=== PATIENT | male | born 1975 | race Caucasian/White ===

== ENCOUNTER 2016-12-13 10:07 | Observation (INO) ==
[2016-12-13] MEDS ORDERED: 0.9 % Sodium Chloride 500 ML IVC ONE (10:12)
[2016-12-13] MEDS ORDERED: Aspirin 81 MG TAB.CHEW PO ONE (10:12)
[2016-12-13] MEDS ORDERED: Ondansetron 4 MG/2 ML VIAL IVP ONE (10:12)
[2016-12-13] MEDS ORDERED: Ketorolac 30 MG/ML VIAL IVP ONE (10:12)
--- NOTE | 2016-12-13 10:14 | Emergency Department Note ---
Disposition Clinical Impression: Atypical chest pain Chest pain Qualifiers: Chest pain type: precordial pain Qualified Code(s): R07.2 - Precordial pain Disposition: Admitted As Inpatient Condition: Good Referrals: NONE,PCP [Non-Partnered Physician] - Escobar Motley [Family Provider] - Forms: ED Satisfaction Letter Chest Pain HPI - General Chief Complaint: ED Chest Pain Stated Complaint: left sided chest pain Time Seen by Provider: 12/13/16 10:09 Source: patient Mode of arrival: private vehicle Limitations: no limitations Vital Signs Reviewed: Yes Nursing Notes Reviewed: Yes - History of Present Illness HPI Narrative: Patient relates that he was reaching for involvement on the wall in his barn when he had acute onset of severe pain in his mid chest radiating to his left shoulder. He states this is sharp and severe. It has been worse with motion. He states he was not doing any hard work or labor in the barn. He has had some associated sweating but no shortness of breath or nausea. He denies weakness or dizziness. Denies lower extremity complaints. He has not been having cough , fevers or chills and states he felt well before. He denies any pain or trouble like this before. He denies any type of impact, strain or injury to the area. The patient does have a history of obesity and a family history of heart disease. He denies personal history of hypertension, diabetes, elevated cholesterol, heart disease, smoking or history of DVT/PE. Pt complaint: chest pain Onset (ago): Just PULLER OUT Duration: constant Onset: during rest Pain Location: left chest Severity: severe Quality: sharp Pain Radiation: LUE Improves with: rest Worsens with: exertion, movement Associated symptoms: Reports: diaphoresis. Denies: nausea, vomiting, dyspnea, syncope, palpitations, fever, cough, leg swelling Treatments prior to arrival chest pain: none - Related Data Home Medications Medication Instructions Recorded Confirmed No Known Home Drugs 12/13/16 12/13/16 Allergies Allergy/AdvReac Type Severity Reaction Status Date / Time No Known Allergies Allergy Verified 12/13/16 10:13 All systems ED: reviewed and negative except as stated. Chest Pain PMH - Past Medical History Medical history: Reports: other (Obesity). Denies: asthma, COPD, DVT, diabetes , hyperlipidemia, hypertension, liver disease, pulmonary embolus Surgical history: Reports: no surgical history Psychiatric history: Reports: no psych history - Social History Smoking Status: Never smoker Alcohol use: Reports: none Drug use: Reports: none Physical Exam - General Limitations: no limitations General appearance: alert, anxious, in distress (Occasionally grimacing in pain) - Head Head exam: atraumatic - Eye Eye exam: Present: normal appearance, PERRL, EOMI. Absent: scleral icterus, conjunctival injection - ENT ENT exam: normal exam, normal oropharynx, mucous membranes moist - Neck Neck exam: Present: normal inspection, full ROM, trachea midline - Chest Chest inspection: Present: normal inspection, symmetric chest wall rise. Absent : tenderness - Respiratory Respiratory exam: Present: normal lung sounds bilaterally. Absent: respiratory distress, wheezes, prolonged expiratory phase - Cardiovascular Cardiovascular exam: Present: regular rate, normal rhythm, normal heart sounds. Absent: tachycardia, systolic murmur, JVD - Abdominal Exam Abdominal exam: Present: soft, normal bowel sounds, other (Right upper quadrant seems to produce more wincing and pain for the patient in the left chest and shoulder.). Absent: distention, guarding, rebound, rigidity, Barnard's sign, tenderness at McBurney's Point - Extremities Exam Extremities exam: Present: normal inspection, full ROM, normal capillary refill. Absent: tenderness, pedal edema, calf tenderness - Expanded Lower Extremity Exam Neurovascular/Tendon exam: Present: normal capillary refill. Absent: motor deficit, sensory deficit, tendon deficit Gait: not tested/not observed - Back Exam Back exam: Present: normal inspection, full ROM. Absent: tenderness, CVA tenderness (R), CVA tenderness (L) - Neurological Exam Neurological exam: Present: alert, oriented X3 - Psychiatric Psychiatric exam: Present: normal affect, anxious - Skin Skin exam: Present: warm, dry, intact, normal color. Absent: diaphoresis, pallor Course Course Narrative: 1100: All lab, x-ray and EKG are discussed with the patient. He states he still has a 4-5 on a scale of 1-10 pain. The pain is worse with elevation of motion of the left arm. He again reiterates that he was just reaching for a pitchfork when he started with pain. He states that the chest pain component got worse when he is walking back to the house. Currently his heart score is 2 but he is continuing with pain. I recommended that we observe him for serial enzymes and that I will talk to our hospitalist for his observation. He is agreeable with this and he has been started on some nitroglycerin paste and written for a [place] for pain. Vital Signs Temperature 98.7 F 12/13/16 10:10 Pulse Rate 80 12/13/16 10:10 Respiratory Rate 18 12/13/16 10:10 Blood Pressure 163/103 12/13/16 10:10 O2 Sat by Pulse Oximetry 95 12/13/16 10:10 Temperature 98.7 F 12/13/16 10:10 Pulse Rate 91 12/13/16 10:39 Respiratory Rate 18 12/13/16 10:39 Blood Pressure 133/68 12/13/16 10:39 O2 Sat by Pulse Oximetry 94 12/13/16 10:39 Oxygen Delivery Oxygen Delivery Room Air Chest Pain - Differential Diagnosis Likely: pneumothorax, atypical chest pain, costalchondritis, chest pain, biliary colic - Lab Data Lab results reviewed: Yes I reviewed the patient's lab results. Result diagrams: 12/13/16 10:15 12/13/16 10:15 Lab Results 12/13/16 12/13/16 12/13/16 Range/Units 10:15 10:15 10:15 WBC (4.3-11.1) K/mcL RBC (4.19-5.50) M/mcL Hgb (12.9-16.9) g/dL Hct (37.5-50.1) % MCV (83.0-100.0) fL MCH (28.0-33.3) pg MCHC (31.6-35.5) g/dL RDW (11.5-14.5) % Plt Count (140-400) K/mcL MPV (9.4-12.4) fL Immature Gran % (0-4) % Seg Neutrophils % % Lymphocytes % % Monocytes % % Eosinophils % % Basophils % % Neutrophils # (1.6-8.9) K/mcL Lymphocytes # (0.6-4.6) K/mcL Monocytes # (0.0-1.3) K/mcL Eosinophils # (0.0-0.6) K/mcL Basophils # (0.0-0.2) K/mcL PT 11.0 (9.4-12.1) Seconds INR 1.0 APTT 30.8 (26.0-36.0) Seconds D-Dimer 258 (0-500) ng/mLFEU Sodium (136-145) mEq/L Potassium (3.5-4.5) mEq/L Chloride (98-109) mEq/L Carbon Dioxide (19-29) mEq/L BUN (8-26) mg/dL Creatinine (0.72-1.25) mg/dL Est GFR ( Amer) (> 60) Est GFR (Non-Af Amer) (> 60) BUN/Creatinine Ratio (6-26) Glucose (70-99) mg/dL Calculated Osmolality (280-300) Calcium (8.6-10.8) mg/dL Total Bilirubin (0.2-1.2) mg/dL Direct Bilirubin (0.0-0.5) mg/dL Indirect Bilirubin (0.0-1.2) mg/dL AST (5-34) Units/L ALT (0-55) Units/L Alkaline Phosphatase (38-126) Units/L Troponin I (0-0.03) ng/mL B-Natriuretic Peptide < 10 (0-100) pg/mL Serum Total Protein (6.0-8.3) g/dL Albumin (3.5-5.0) g/dL Globulin (2.4-3.5) g/dL Albumin/Globulin Ratio (1.1-2.2) Amylase (25-125) Units/L Lipase (8-78) Units/L 12/13/16 12/13/16 12/13/16 Range/Units 10:15 10:15 10:15 WBC 9.0 (4.3-11.1) K/mcL RBC 5.76 H (4.19-5.50) M/mcL Hgb 17.4 H (12.9-16.9) g/dL Hct 49.1 (37.5-50.1) % MCV 85.2 (83.0-100.0) fL MCH 30.2 (28.0-33.3) pg MCHC 35.4 (31.6-35.5) g/dL RDW 13.0 (11.5-14.5) % Plt Count 214 (140-400) K/mcL MPV 10.1 (9.4-12.4) fL Immature Gran % 0.2 (0-4) % Seg Neutrophils % 58.4 % Lymphocytes % 30.9 % Monocytes % 6.4 % Eosinophils % 3.4 % Basophils % 0.7 % Neutrophils # 5.3 (1.6-8.9) K/mcL Lymphocytes # 2.8 (0.6-4.6) K/mcL Monocytes # 0.6 (0.0-1.3) K/mcL Eosinophils # 0.3 (0.0-0.6) K/mcL Basophils # 0.1 (0.0-0.2) K/mcL PT (9.4-12.1) Seconds INR APTT (26.0-36.0) Seconds D-Dimer (0-500) ng/mLFEU Sodium 140 (136-145) mEq/L Potassium 4.1 (3.5-4.5) mEq/L Chloride 106 (98-109) mEq/L Carbon Dioxide 25 (19-29) mEq/L BUN 15 (8-26) mg/dL Creatinine 1.04 (0.72-1.25) mg/dL Est GFR ( Amer) > 60 (> 60) Est GFR (Non-Af Amer) > 60 (> 60) BUN/Creatinine Ratio 14 (6-26) Glucose 105 H (70-99) mg/dL Calculated Osmolality 291 (280-300) Calcium 9.9 (8.6-10.8) mg/dL Total Bilirubin (0.2-1.2) mg/dL Direct Bilirubin (0.0-0.5) mg/dL Indirect Bilirubin (0.0-1.2) mg/dL AST (5-34) Units/L ALT (0-55) Units/L Alkaline Phosphatase (38-126) Units/L Troponin I 0.00 (0-0.03) ng/mL B-Natriuretic Peptide (0-100) pg/mL Serum Total Protein (6.0-8.3) g/dL Albumin (3.5-5.0) g/dL Globulin (2.4-3.5) g/dL Albumin/Globulin Ratio (1.1-2.2) Amylase (25-125) Units/L Lipase (8-78) Units/L 10/14/17 Range/Units 10:15 WBC (4.3-11.1) K/mcL RBC (4.19-5.50) M/mcL Hgb (12.9-16.9) g/dL Hct (37.5-50.1) % MCV (83.0-100.0) fL MCH (28.0-33.3) pg MCHC (31.6-35.5) g/dL RDW (11.5-14.5) % Plt Count (140-400) K/mcL MPV (9.4-12.4) fL Immature Gran % (0-4) % Seg Neutrophils % % Lymphocytes % % Monocytes % % Eosinophils % % Basophils % % Neutrophils # (1.6-8.9) K/mcL Lymphocytes # (0.6-4.6) K/mcL Monocytes # (0.0-1.3) K/mcL Eosinophils # (0.0-0.6) K/mcL Basophils # (0.0-0.2) K/mcL PT (9.4-12.1) Seconds INR APTT (26.0-36.0) Seconds D-Dimer (0-500) ng/mLFEU Sodium (136-145) mEq/L Potassium (3.5-4.5) mEq/L Chloride (98-109) mEq/L Carbon Dioxide (19-29) mEq/L BUN (8-26) mg/dL Creatinine (0.72-1.25) mg/dL Est GFR ( Amer) (> 60) Est GFR (Non-Af Amer) (> 60) BUN/Creatinine Ratio (6-26) Glucose (70-99) mg/dL Calculated Osmolality (280-300) Calcium (8.6-10.8) mg/dL Total Bilirubin 0.9 (0.2-1.2) mg/dL Direct Bilirubin 0.4 (0.0-0.5) mg/dL Indirect Bilirubin 0.5 (0.0-1.2) mg/dL AST 43 H (5-34) Units/L ALT 92 H (0-55) Units/L Alkaline Phosphatase 85 (38-126) Units/L Troponin I (0-0.03) ng/mL B-Natriuretic Peptide (0-100) pg/mL Serum Total Protein 7.8 (6.0-8.3) g/dL Albumin 4.0 (3.5-5.0) g/dL Globulin 3.8 H (2.4-3.5) g/dL Albumin/Globulin Ratio 1.1 (1.1-2.2) Amylase 27 (25-125) Units/L Lipase 13 (8-78) Units/L - Radiology Data Radiology results reviewed: Yes I reviewed the patient's radiology results. Single view chest x-ray is performed. This does not demonstrate evidence for infiltrate, effusion, pneumothorax, foreign body or heart failure. The cardiac silhouette is normal. I do not see abnormality to the osseous structures of the chest. This is on my interpretation. Impressions Chest X-Ray 12/13/16 10:12 IMPRESSION: Motion artifact limited exam, without evidence of acute disease. D/ / Nahum Emmanuel MD / Nahum Emmanuel MD Interpreting Provider: Nahum mEmanuel MD - EKG Data EKG attestation: Yes I reviewed and interpreted this EKG. EKG shows normal: sinus rhythm, axis, intervals, QRS complexes, ST-T waves Rate: normal (83) [place]/QRS: LAHB/LAFB Interpretation: no acute changes Heart Score - Score History: Moderately Suspicious EKG: Normal Age: Less than 45 Risk Factors: 1-2 risk factors Troponin: Less than normal limit HEART Score Total: 2
[2016-12-13] MEDS: Nitroglycerin 0.4 MG TAB.SUBL SL ONE ×3 (10:23→10:35)
[2016-12-13 10:26] LABS: Basophils # 0.1 K/mcL (0.0-0.2); Basophils % 0.7 %; Eosinophils # 0.3 K/mcL (0.0-0.6); Eosinophils % 3.4 %; Hematocrit 49.1 % (37.5-50.1); Hemoglobin 17.4 g/dL (12.9-16.9); Immature Granulocytes % 0.2 % (0-4); Lymphocytes # 2.8 K/mcL (0.6-4.6); Lymphocytes % 30.9 %; Mean Corpuscular HGB Conc 35.4 g/dL (31.6-35.5); Mean Corpuscular Hemoglobin 30.2 pg (28.0-33.3); Mean Corpuscular Volume 85.2 fL (83.0-100.0); Mean Platelet Volume 10.1 fL (9.4-12.4); Monocytes # 0.6 K/mcL (0.0-1.3); Monocytes % 6.4 %; Neutrophils # 5.3 K/mcL (1.6-8.9); Platelet Count 214 K/mcL (140-400); Red Blood Count 5.76 M/mcL (4.19-5.50); Segmented Neutrophils % 58.4 %
[2016-12-13 10:37] LABS: Activated Partial Thrombo Time 30.8 Seconds (26.0-36.0)
[2016-12-13 10:43] LABS: BUN/Creatinine Ratio 14 (6-26); Blood Urea Nitrogen 15 mg/dL (8-26); Calcium 9.9 mg/dL (8.6-10.8); Carbon Dioxide 25 mEq/L (19-29); Chloride 106 mEq/L (98-109); Glucose 105 mg/dL (70-99); Osmolality,Calculated 291 (280-300); Potassium 4.1 mEq/L (3.5-4.5); Sodium 140 mEq/L (136-145); eGFR For African Americans > 60 (> 60); eGFR For Non-African Americans > 60 (> 60)
[2016-12-13 10:46] LABS: Albumin/Globulin Ratio 1.1 (1.1-2.2); Bilirubin,Direct 0.4 mg/dL (0.0-0.5); Bilirubin,Indirect 0.5 mg/dL (0.0-1.2); Bilirubin,Total 0.9 mg/dL (0.2-1.2); Globulin 3.8 g/dL (2.4-3.5); Total Protein 7.8 g/dL (6.0-8.3)
[2016-12-13] MEDS ORDERED: Nitroglycerin 1 INCH/GM PACKET TP ONE (11:05)
[2016-12-13] MEDS ORDERED: *HR* HYDROcodone/Acet 5/325 mg TABLET PO ONE (11:05)
[2016-12-13] MEDS ORDERED: Naloxone 0.4 MG/ML INJ IVP PRN (12:43)
[2016-12-13] MEDS ORDERED: MOM Conc 10 ML UD.LIQ PO PRN (12:43)
[2016-12-13] MEDS ORDERED: Acetaminophen 325 MG TABLET PO PRN (12:43)
[2016-12-13] MEDS ORDERED: 0.9 % Sodium Chloride 1,000 ML IVC SCH (12:43)
[2016-12-13] MEDS ORDERED: Ondansetron 4 MG/2 ML VIAL IVP PRN (12:43)
[2016-12-13] MEDS ORDERED: Ketorolac 30 MG/ML VIAL IVP PRN (12:43)
[2016-12-13 14:49] VITALS: BP 124/73
--- NOTE | 2016-12-13 17:13 | Internal Med History&Physical ---
Date of Encounter: 12/13/16 Time of Encounter: 16:40 Assessment and Plan (1) Atypical chest pain Current visit: Yes Status: Acute Suspect musculoskeletal origin arising primarily from supraspinatus muscle spasm. Repeat cardiac enzymes were ordered through emergency room. (2) Elevated transaminase level Current visit: Yes Status: Chronic Review of labs done November 2013 showed slight elevation. I explained to him he might have NAFLD etiology. (3) Elevated hemoglobin Current visit: Yes Status: Acute I explained to him this might be an indicator of secondary polycythemia from sleep apnea. His states that he has significant snoring. I told him he could have further discussion/ workup through his PCP. Internal Medicine - H&P: HPI Chief complaint: Back and chest pain Admitted From: Home Plans for Post Hospital Care: Home History of present illness: Mr. Castro is a 41 year old male who came to the emergency room stating he had sudden onset of discomfort in his scapular area after reaching for a pitchfork in his barn using his right hand. He did not actually brick picker the pitchfork but was simply reaching toward it when the pain occurred. After resting a few minutes without relief he started walking to the house and noted the pain seemed to be radiating anteriorly toward his left chest area. He became concerned it might be originating from his heart so came to the emergency room. He was evaluated and admitted to [facility] for ongoing care needs. He denies previous similar pains. He has not had any injuries. His cardiovascular history is negative for hypertension heart failure angina DVT or pulmonary embolus. 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 Past Med Surg Social Fam HX - Past Medical History Medical history: other Psychiatric history: no psych history - Past Surgical History Surgical History: no surgical history - Social History Smoking Status: Never smoker Smokeless Tobacco Status: No Alcohol use: none Drug use: none Internal Medicine - H&P: Meds No Known Home Drugs 12/13/16 [History] 3 Allergy/AdvReac Type Severity Reaction Status Date / Time No Known Allergies Allergy Verified 12/13/16 10:13 All Systems PM: A 10-system review of systems was performed and is negative for pertinent findings except as documented above in the HPI. Review of systems: Gen.: He states his weight has been stable past few months Cardiovascular: As per history of present illness Rester: He smoked for approximately 2 years as a teenager. He has no known chronic lung disease and does not use home oxygen. GI: Denies disorders of his liver gallbladder or exocrine pancreas. He has been told he had elevated liver enzymes on past blood work. : He denies hematuria dysuria or kidney stones Neurologic: He denies large distribution strokes or seizures. Endocrine: Denies diabetes thyroid disease or hyperlipidemia Hematology/oncology: Denies blood disorders cancers or anemia Psychiatric: He denies anxiety depression other mental health issues [place] skeletal: He denies arthritis gout or other bone joint or muscle disorders. - Constitutional Vitals: Temp Pulse Resp BP Pulse Ox 98.6 F 69 18 124/73 96 12/13/16 14:43 12/13/16 14:43 12/13/16 14:43 12/13/16 14:43 12/13/16 14:43 Exam: Gen.: He is a well-developed overweight male who appears in no acute distress at present time. He states his scapular area pain is significantly improved from the emergency room earlier today. HEENT: Head is atraumatic and normocephalic. Eyes: EOMI. There is no scleral icterus. Mouth: Mucosa is moist. Neck: Supple and nontender. There is no thyromegaly or adenopathy noted. Heart: Regular without murmurs gallops or ectopics Lungs: No wheezes or crackles are heard. Back: He has tenderness to deep palpation of the supraspinatus area at the medial border of the scapula. He states "that is the pain" on deep palpation. Abdomen: Soft and nontender. No masses or guarding are noted. Extremities: There is no cyanosis edema or clubbing noted. Dorsalis pedis and posterior tibial pulses are 1-2 over 2 palpable bilaterally. Neurologic: Mental status: He is talkative and a good historian. Cranial nerves : Smile is symmetric. Forehead wrinkles bilaterally. Tongue protrudes midline. EOMI. Motor: There is no pronator drift. Cerebellar: Finger to nose is intact bilaterally. Skin: Warm and dry Internal Med - H&P Results - Labs CBC & Chem 7: 12/13/16 10:15 12/13/16 10:15 Labs: Cardiac Enzymes 12/13/16 Range/Units 13:20 Troponin I 0.01 (0-0.03) ng/mL
--- NOTE | 2016-12-13 17:29 | Discharge Summary ---
Date of Encounter: 12/13/16 Time of Encounter: 16:40 - Discharge Diagnosis (1) Atypical chest pain Priority: Primary Status: Acute (2) Elevated transaminase level Priority: Secondary Status: Chronic (3) Elevated hemoglobin Priority: Secondary Status: Acute - Discharge Medications Home Medications: No Known Home Drugs 12/13/16 [History] Allergies/Adverse Reactions: 3 Allergy/AdvReac Type Severity Reaction Status Date / Time No Known Allergies Allergy Verified 12/13/16 10:13 Date of admission: 12/13/16 12:28 Primary care physician: Pantera Rich DO - Patient Status Disposition: Home, Self-Care Condition: Good Functional capacity at discharge: independent ambulation Overall status at discharge: patient is progressing back to baseline - Discharge Instructions Follow Up With: Pantera Rich DO [Primary Care Provider] - 1 week - Diet and Activity Activity: resume usual activities as tolerated Diet: advance to your usual diet Hospital course: Mr. Castro is a 41 year old male who came to the emergency room stating he had sudden onset of discomfort in his scapular area after reaching for a pitchfork in his barn using his right hand. He did not actually waste picker the pitchfork but was simply reaching toward it when the pain occurred. After resting a few minutes without relief he started walking to the house and noted the pain seemed to be radiating anteriorly toward his left chest area. He became concerned it might be originating from his heart so came to the emergency room. He was evaluated and admitted to [facility] for ongoing care needs. Initial orders were written by the emergency room physician. I saw him the late afternoon of December 13 and performed a history physical and discharge. Repeat cardiac enzymes showed no evidence of myocardial damage. When I saw him I felt the pain was likely of musk skeletal origin. The pain was reproduced by deep palpation over the medial end of this left supraspinatus muscle. I felt he could be discharged home and follow with his PCP within one week to monitor for complete resolution of his discomfort. He will discuss with his PCP the elevation of his transaminase levels possibly indicating fatty liver disease. He will also discuss elevated hemoglobin possibly indicating secondary polycythemia from sleep apnea. - Time Spent with Patient Total time spent providing and/or coordinating discharge services: - Constitutional Vitals: Temp Pulse Resp BP Pulse Ox 98.6 F 69 18 124/73 96 12/13/16 14:43 12/13/16 14:43 12/13/16 14:43 12/13/16 14:43 12/13/16 14:43
--- NOTE | 2016-12-14 12:07 | Electrocardiograph Report ---
[address] [place], [place] [address] Test Date: 2016-12-13 Pat Name: Edgar Castro Department: [id number] Room: [facility] Gender: M Guest Service Supervisor: [id number] : 1975 Requested By: Juan Jin Order Number: [id number] Reading MD: Alli Hernandez MD Measurements Intervals [place] Rate: 83 P: 16 IA: 179 QRS: -48 QRSD: 100 T: 33 QT: 348 QTc: 388 Interpretive Statements SINUS RHYTHM LEFT ANTERIOR FASCICULAR BLOCK Electronically Signed On 12-14-2016 12:05:38 EDT by Alli Hernandez MD
== END 2016-12-13 18:02 | disposition home or self-care (01) ==
LOC: INPPIK 10:07 → EMEROOPIK 10:07 → INPPIK 12:36
PROVIDERS: ADMIT Internal Medicine; ATTEND Internal Medicine